=== PATIENT | female | born 1970 | race Hispanic/Latino ===

== ENCOUNTER 2017-08-07 10:00 | Emergency (ER) | payer MEDICAID ==
[2017-08-07 10:11] VITALS: BMI 25.2
--- NOTE | 2017-08-07 10:17 | ED PDOC ---
Arrival/HPI - General Time Seen by Provider: 08/07/17 10:15 Historian: Patient Past Medical History - Provider Review Nursing Documentation Reviewed: Yes - Infectious Disease Hx of Infectious Diseases: None - Musculoskeletal/Rheumatological Hx Back Pain: Yes Other/Comment: "bad knees" - Gastrointestinal Hx Diverticulitis: Yes - Genitourinary/Gynecological Other/Comment: "Weak Bladder" - Psychiatric Hx Substance Use: No - Surgical History Hx Cholecystectomy: Yes Other/Comment: Right knee sx - Anesthesia Hx Anesthesia: Yes Hx Anesthesia Reactions: No Hx Malignant Hyperthermia: No Family/Social History - Physician Review Nursing Documentation Reviewed: Yes Family/Social History: Unknown Family HX Smoking Status: Light Smoker < 10 Cigarettes Daily Hx Alcohol Use: No Hx Substance Use: No Allergies/Home Meds Allergies/Adverse Reactions: Allergies No Known Allergies Allergy (Verified 08/15/15 02:42) Home Medications: Home Meds Medication Instructions Recorded Confirmed Buprenorphine HCl/Naloxone HCl 1 film PO DAILY 08/15/15 08/15/15 [Suboxone 2 mg-0.5 mg Sl Film] Mirabegron [Myrbetriq] 1 tab PO DAILY 08/15/15 08/15/15 clonazePAM [Klonopin] 1 tab PO BID 08/15/15 08/15/15 Physical Exam - Physical Exam Narrative Physical Exam (Text): 08/07/17 Head: Atraumatic. Normocephalic. Eyes: PERRL. EOMI. Conjunctivae are not pale. ENT: Mucous membranes are moist and intact. Oropharynx is clear and symmetric. Neck: Supple. Full ROM. No JVD. No lymphadenopathy. Cardiovascular: Regular rate. Regular rhythm. No murmurs, rubs, or gallops. Distal pulses are 2+ and symmetric. Pulmonary/Chest: No evidence of respiratory distress. Clear to auscultation bilaterally. No wheezing, rales or rhonchi. Abdominal: Soft and non-distended. There is no tenderness. No rebound, guarding, or rigidity. No organomegaly. Good bowel sounds. Back: No CVA tenderness. Extremities: No edema. No cyanosis. No clubbing. Full range of motion in all extremities. No calf tenderness. Skin: Skin is warm and dry. No petechiae. No purpura. Neurological: Alert, awake, and oriented to person, place, time, and situation. Normal speech. Psychiatric: Good eye contact. Normal interaction, affect, and behavior. - Scribe Statement The provider has reviewed the documentation as recorded by the Glenisibe Catarina Mason Provider Scribe Attestation: All medical record entries made by the Scribe were at my direction and personally dictated by me. I have reviewed the chart and agree that the record accurately reflects my personal performance of the history, physical exam, medical decision making, and the department course for this patient. I have also personally directed, reviewed, and agree with the discharge instructions and disposition. Disposition/Present on Arrival - Present on Arrival History of DVT/PE: No History of Uncontrolled Diabetes: No Urinary Catheter: No History Surgical Site Infection Following: None - Disposition
--- NOTE | 2017-08-07 10:49 | ED PDOC ---
Arrival/HPI - General Chief Complaint: Psychiatric Evaluation Time Seen by Provider: 08/07/17 10:15 - History of Present Illness Narrative History of Present Illness (Text): 08/07/17 10:42 47 yo F with PMH of endometrial CA, skin CA, opioid abuse on suboxone, and IBS presents to emergency department accompanied by Dejon ALLEN and EMS after being found trespassing. Patient states that she's had multiple stressors in her life including poor job stability and tension between her kids. Patient denies any suicidal/homicidal ideation or visual/auditory hallucinations. Patient states that she had not slept for 3 days and was about to come to the hospital because she wanted to get some sleep. Before her partner could drive her to the hospital , she ran off and was found trespassing and being disruptive in a laundry room. Patient denies chest pain, shortness of breath nausea, vomiting, diarrhea, abdominal pain, fever, chills, headache, or dizziness. PMD: Fredy Zavala) Past Medical History - Infectious Disease Hx of Infectious Diseases: None - Cardiac Hx Cardiac Disorders: No - Pulmonary Hx Respiratory Disorders: No - Neurological Hx Neurological Disorder: No - HEENT Hx HEENT Disorder: No - Renal Hx Renal Disorder: No - Endocrine/Metabolic Hx Endocrine Disorders: No - Hematological/Oncological Hx Blood Disorders: No - Integumentary Hx Dermatological Disorder: Yes Other/Comment: Skin Cancer - Musculoskeletal/Rheumatological Hx Musculoskeletal Disorders: Yes Hx Back Pain: Yes Other/Comment: "bad knees" - Gastrointestinal Hx Gastrointestinal Disorders: Yes Hx Diverticulitis: Yes - Genitourinary/Gynecological Hx Genitourinary Disorders: Yes Other/Comment: "Weak Bladder". Endometrial Cancer - Psychiatric Hx Psychophysiologic Disorder: Yes Hx Anxiety: Yes Hx Depression: Yes Hx Panic Disorder: Yes (Panic Attack) Hx Substance Use: No - Surgical History Hx Cholecystectomy: Yes Other/Comment: Right knee sx - Anesthesia Hx Anesthesia: Yes Hx Anesthesia Reactions: No Hx Malignant Hyperthermia: No Family/Social History Family/Social History: Other (depression/anxiety) Smoking Status: Light Smoker < 10 Cigarettes Daily Hx Alcohol Use: No Hx Substance Use: No Allergies/Home Meds Allergies/Adverse Reactions: Allergies No Known Allergies Allergy (Verified 08/15/15 02:42) Home Medications: Home Meds Medication Instructions Recorded Confirmed Buprenorphine HCl/Naloxone HCl 1 film PO DAILY 08/15/15 08/07/17 [Suboxone 2 mg-0.5 mg Sl Film] ALPRAZolam [Xanax] 1 mg PO TID PRN 08/07/17 08/07/17 Linaclotide [Linzess] 290 mcg PO DAILY 08/07/17 08/07/17 Tolterodine Tartrate [Detrol LA] 4 mg PO DAILY 08/07/17 08/07/17 Review of Systems - Physician Review All systems were reviewed & negative as marked: Yes (12 point ROS reviewed and is negative other than what is stated in HPI.) Physical Exam Vital Signs Reviewed: Yes Temperature: Afebrile Blood Pressure: Normal Pulse: Regular Respiratory Rate: Normal Appearance: Positive for: Non-Toxic Pain Distress: None Mental Status: Positive for: Alert and Oriented X 3, Agitated - Systems Exam Head: Present: Atraumatic, Normocephalic Pupils: Present: PERRL Extroacular Muscles: Present: EOMI Conjunctiva: Present: Normal Mouth: Present: Moist Mucous Membranes Neck: Present: Normal Range of Motion Respiratory/Chest: Present: Clear to Auscultation. No: Wheezes, Rales, Rhonchi Cardiovascular: Present: Regular Rate and Rhythm, Normal S1, S2. No: Murmurs, Rub, Gallop Abdomen: No: Tenderness, Distention, Rebound, Guarding Upper Extremity: Present: Normal Inspection. No: Cyanosis, Edema Lower Extremity: Present: Normal Inspection. No: Edema Neurological: Present: GCS=15, CN II-XII Intact, Speech Normal Skin: Present: Warm, Dry, Normal Color. No: Rashes Psychiatric: Present: Alert, Oriented x 3, Agitated, Depressed Mood, Other ( Tangential thinking). No: Normal Insight, Normal Concentration, Suicidal Ideation, Homicidal Ideation, Hallucinations Vital Signs Temp Pulse Resp BP Pulse Ox 08/08/17 20:20 80 17 110/70 100 08/08/17 18:34 97.9 F 08/08/17 18:28 98 H 18 98/78 L 99 08/08/17 04:32 61 16 117/71 100 08/08/17 01:58 60 12 112/62 100 08/07/17 19:33 83 18 121/73 99 08/07/17 17:50 74 18 122/68 99 08/07/17 15:39 72 18 128/74 100 08/07/17 13:00 75 18 121/71 100 08/07/17 10:22 98.4 F 89 18 119/65 100 Medical Decision Making ED Course and Treatment: 08/07/17 18:04 Patient seen and evaluated with medical physics researcher. I examined patient and reviewed history with patient and consults. Patient admits to me "I admit I used some ecstasy". She denies headache or chest pain or shortness of breath. She is afebrile. She denies dysuria or frequency. With patient's permission, patient's significant other brought patient to Emergency department and history reviewed with him. Patient states to me that "my daughter called the police I'm not sure why". It is reported that she has been agitated and intermittently aggressive and pressure. Throughout Emergency department stay she is noted to be intermittently screaming at staff and entering offices despite being verbally updated on treatment plan which includes mental health evaluation and screening given history of agitation and aggressive behavior. I re-evaluated patient at 1745 and was able to speak to her, she became more calm and cooperative, RESTRAINTS AT THIS TIME WERE THUS NOT PLACED, although will continue one to one for reported aggressive behavior and agitation, potential harm to self in agitated state. Case to be endorsed to oncoming Emergency department physician for follow-up of screener recommendations and final disposition. (Frank Putnam) 08/07/17 10:56 47 yo F presents to emergency department for psychiatric evaluation. Plan: - CBC, CMP - EtOH level - CPK - ASA, tylenol level - UDS - UA - Urine - Chest X-ray - EKG - Reassess and disposition EKG reviewed and shoed rate of 81. NSR. Left axis deviation. Inferior infarct age undetermined 08/07/17 11:21 Potassium 3.3, repleted with PO KCl. CXR reviewed by radiologist showed no active disease. 08/07/17 14:24 Patient is medically cleared for psych admission and transfer. PES evaluated patient and is candidate for admission, however, patient currently refusing voluntary psychiatric admission. Information faxed to [facility] for evaluation for involuntary psychiatric admission. 08/07/17 17:41 Patient starting to become agitated and aggressive and was continuously pacing around the emergency department. Patient began entering restricted areas and was asked to remain in her room. However, patient was non-compliant. Thus, restraints and 1:1 ordered. (Fredy Carreno) - Lab Interpretations Lab Results: 08/07/17 10:45 08/07/17 10:45 Lab Results 08/07/17 11:05: Urine Opiates Screen Negative, Urine Methadone Screen Negative, Ur Barbiturates Screen Negative, Ur Phencyclidine Scrn Negative, Ur Amphetamines Screen Positive H, U Benzodiazepines Scrn Positive H, U Oth Cocaine Metabols Negative, U Cannabinoids Screen Negative 08/07/17 11:05: Urine Color Yellow, Urine Appearance Clear, Urine pH 6.0, Ur Specific [place] >= 1.030, Urine Protein Trace H, Urine Glucose (UA) Negative, Urine Ketones 40 H, Urine Blood Negative, Urine Nitrate Negative, Urine Bilirubin Small H, Urine Urobilinogen 0.2, Ur Leukocyte Esterase Negative, Urine RBC 0 - 2, Urine WBC 0 - 2, Ur Epithelial Cells 1 - 3, Urine Bacteria Mod , Urine HCG, Qual Negative 08/07/17 10:45: Alcohol, Quantitative < 10 08/07/17 10:45: Salicylates < 1 L, Acetaminophen < 10.0 L 08/07/17 10:45: Sodium 140, Potassium 3.3 L, Chloride 102, Carbon Dioxide 26, Anion Gap 16, BUN 10, Creatinine 0.6 L, Est GFR ( Amer) > 60, Est GFR ( Non-Af Amer) > 60, Random Glucose 113 H, Calcium 9.1, Magnesium 1.7, Total Bilirubin 1.2, AST 21, ALT 28, Alkaline Phosphatase 65, Total Creatine Kinase 86 , Total Protein 6.9, Albumin 4.3, Globulin 2.7, Albumin/Globulin Ratio 1.6 08/07/17 10:45: WBC 5.2, RBC 4.19, Hgb 12.4, Hct 35.3 L, MCV 84.2, MCH 29.6, MCHC 35.1, RDW 12.9, Plt Count 241, MPV 10.0, Gran % 61.0, Lymph % (Auto) 28.0, [place] % (Auto) 10.2 H, Eos % (Auto) 0.8 L, Baso % (Auto) 0.0, Gran # 3.19, Lymph # (Auto) 1.5, [place] # (Auto) 0.5, Eos # (Auto) 0.0, Baso # (Auto) 0.00 - RAD Interpretation Radiology Orders: 08/07/17 10:50 CHEST PORTABLE [RAD] Stat - Medication Orders Current Medication Orders: Discontinued Medications Diphenhydramine HCl (Benadryl) 50 mg IM Q6H PRN PRN Reason: agitation/aggression Haloperidol Lactate (Haldol) 5 mg IM STAT STA PRN Reason: Protocol Stop: 08/08/17 04:54 Last Admin: 08/08/17 05:40 Dose: 5 mg IM Administration Charges Document 08/08/17 05:40 CNR (Rec: 08/08/17 05:40 CNR [id number]) Injection Site MAR Injection Site Right Deltoid Charges for Administration # of IM Administrations 1 Haloperidol Lactate (Haldol) 5 mg IM Q6H PRN; Protocol PRN Reason: agitation/psychosis Lorazepam (Ativan) 2 mg IM ONCE ONE Stop: 08/08/17 04:53 Last Admin: 08/08/17 05:40 Dose: 2 mg IM Administration Charges Document 08/08/17 05:40 CNR (Rec: 08/08/17 05:40 CNR [id number]) Injection Site MAR Injection Site Right Deltoid Charges for Administration # of IM Administrations 1 Lorazepam (Ativan) 2 mg IM Q6 PRN; Protocol PRN Reason: Agitation Potassium Chloride (K-Dur 20 Meq Er Tab) 40 meq PO STAT STA Stop: 08/07/17 11:19 Last Admin: 08/07/17 13:26 Dose: 40 meq Ziprasidone (Geodon Inj) 20 mg IM ONCE STA Stop: 08/07/17 20:43 Last Admin: 08/07/17 20:48 Dose: 20 mg IM Administration Charges Document 08/07/17 20:48 CNR (Rec: 08/07/17 20:48 CNR [id number]) Injection Site MAR Injection Site Left Deltoid Charges for Administration # of IM Administrations 1 Disposition/Present on Arrival - Present on Arrival Any Indicators Present on Arrival: No History of DVT/PE: No History of Uncontrolled Diabetes: No Urinary Catheter: No History of Decub. Ulcer: No History Surgical Site Infection Following: None - Disposition Have Diagnosis and Disposition been Completed?: Yes Disposition Time: 19:00 - Disposition Diagnosis: Bipolar disorder Disposition: Transfer [facility] [place] Condition: STABLE Forms: [facility] (Polish)
[2017-08-07 11:05] LABS: EOS % 0.8 % (1.5-5.0); GRAN # 3.19 (1.4-6.5); HEMOGLOBIN 12.4 g/dL (12.0-16.0); LYMPH # 1.5 (1.2-3.4); MEAN CELL VOLUME 84.2 fl (80.0-105.0); MEAN CORPUSCULAR HEMOGLOBIN 29.6 pg (25.0-35.0); MEAN CORPUSCULAR HGB CONC 35.1 g/dl (31.0-37.0); MONO # 0.5 (0.1-0.6); MONO % 10.2 % (1.0-6.0); RBC 4.19 10^6/uL (3.5-6.1); RED CELL DISTRIBUTION WIDTH 12.9 % (11.5-14.5); WHITE BLOOD COUNT 5.2 10^3/ul (4.5-11.0)
[2017-08-07 11:10] LABS: ACETAMINOPHEN < 10.0 ug/ml (10.0-20.0); ALB/GLOB RATIO 1.6 (1.1-1.8); ALBUMIN 4.3 g/dL (3.0-4.8); ALT/SGPT 28 U/L (7-56); AST/SGOT 21 U/L (14-36); BLOOD UREA NITROGEN 10 mg/dL (7-21); CALCIUM 9.1 mg/dL (8.4-10.5); GFR AFRICAN-AMERICAN > 60; GFR NON-AFRICAN AMERICAN > 60; SALICYLATE < 1 mg/dL (2.0-20.0)
[2017-08-07] MEDS ORDERED: Potassium Chloride 20 mEq ER Tab PO STA (11:18)
[2017-08-07 11:28] LABS: URINE BILIRUBIN SMALL (NEGATIVE); URINE BLOOD NEGATIVE (NEGATIVE); URINE GLUCOSE (UA) NEGATIVE (NEGATIVE); URINE LEUKOCYTE ESTERASE NEGATIVE Leu/uL (NEGATIVE); URINE PROTEIN TRACE mg/dL (<30 mg/dL); URINE UROBILINOGEN 0.2 E.U./dL (<1 E.U./dL)
[2017-08-07 11:31] LABS: URINE APPEARANCE CLEAR (CLEAR); URINE COLOR YELLOW (YELLOW)
[2017-08-07 11:33] LABS: HCG,QUALITATIVE URINE NEGATIVE (NEGATIVE); URINE BACTERIA MOD (NEG); URINE RBC 0 - 2 /hpf (0-2); URINE WBC 0 - 2 /hpf (0-6)
[2017-08-07 11:38] LABS: PHENCYCLIDINE, UR NEGATIVE (NEGATIVE)
[2017-08-07 11:50] LABS: BARBITURATES, UR NEGATIVE (NEGATIVE); BENZODIAZEPINES, UR POSITIVE (NEGATIVE); OPIATES, UR NEGATIVE (NEGATIVE)
--- NOTE | 2017-08-07 11:52 | RAD ---
HISTORY: medical screening COMPARISON: 10/01/2015 FINDINGS: LUNGS: No active pulmonary disease. PLEURA: No significant pleural effusion identified, no pneumothorax apparent. CARDIOVASCULAR: Normal. OSSEOUS STRUCTURES: No significant abnormalities. VISUALIZED UPPER ABDOMEN: Normal. OTHER FINDINGS: None. IMPRESSION: No active disease.
--- NOTE | 2017-08-07 17:05 | CARD ---
APPROVED REPORT EKG Measurement Heart [id number] <Conclusion> Normal sinus rhythm Left axis deviation Inferior infarct, age undetermined Abnormal ECG
--- NOTE | 2017-08-07 19:28 | ED PDOC ---
Physical Exam Vital Signs Temp Pulse Resp BP Pulse Ox 08/08/17 04:32 61 16 117/71 100 08/08/17 01:58 60 12 112/62 100 08/07/17 19:33 83 18 121/73 99 08/07/17 17:50 74 18 122/68 99 08/07/17 15:39 72 18 128/74 100 08/07/17 13:00 75 18 121/71 100 08/07/17 10:22 98.4 F 89 18 119/65 100 Medical Decision Making ED Course and Treatment: 08/07/17 19:25 Patient endorsed to me by . Pending evaluation by [facility] [place] screeners. Patient apparently presented to emergency department post ecstasy use. Patient apparently was found trespassing and exhibiting disruptive behaviour. Patient was medically cleared and was seen by PES who deferred to [facility] [place] screeners. Patient is currently resting comfortably and under evaluation by [facility] [place] [facility] screeners. 08/07/17 20:43 Patient was accepted by [facility] [place] [facility] for transfer. Patient became belligerent and aggressive to ER staff, attempting to abscond. patient is screaming, yelling, and swinging at medical staff requiring her to be restrained. Sedation also ordered for the patient. 08/07/17 21:39 Pt. is awaiting bed availability at [facility] [place].Currently remains sedated. 08/07/18 05:00 Pt. became agitated,yelling and cursing ER staff.Unable to verbally reason with patient she was administered sedation. 08/08/17 07:00 Patient resting comfortably.Endorsed to oncoming attending /awaiting bed availability at [facility] [place] - Lab Interpretations Lab Results: 08/07/17 10:45 08/07/17 10:45 Lab Results 08/07/17 11:05: Urine Opiates Screen Negative, Urine Methadone Screen Negative, Ur Barbiturates Screen Negative, Ur Phencyclidine Scrn Negative, Ur Amphetamines Screen Positive H, U Benzodiazepines Scrn Positive H, U Oth Cocaine Metabols Negative, U Cannabinoids Screen Negative 08/07/17 11:05: Urine Color Yellow, Urine Appearance Clear, Urine pH 6.0, Ur Specific [place] >= 1.030, Urine Protein Trace H, Urine Glucose (UA) Negative, Urine Ketones 40 H, Urine Blood Negative, Urine Nitrate Negative, Urine Bilirubin Small H, Urine Urobilinogen 0.2, Ur Leukocyte Esterase Negative, Urine RBC 0 - 2, Urine WBC 0 - 2, Ur Epithelial Cells 1 - 3, Urine Bacteria Mod , Urine HCG, Qual Negative 08/07/17 10:45: Alcohol, Quantitative < 10 08/07/17 10:45: Salicylates < 1 L, Acetaminophen < 10.0 L 08/07/17 10:45: Sodium 140, Potassium 3.3 L, Chloride 102, Carbon Dioxide 26, Anion Gap 16, BUN 10, Creatinine 0.6 L, Est GFR ( Amer) > 60, Est GFR ( Non-Af Amer) > 60, Random Glucose 113 H, Calcium 9.1, Magnesium 1.7, Total Bilirubin 1.2, AST 21, ALT 28, Alkaline Phosphatase 65, Total Creatine Kinase 86 , Total Protein 6.9, Albumin 4.3, Globulin 2.7, Albumin/Globulin Ratio 1.6 08/07/17 10:45: WBC 5.2, RBC 4.19, Hgb 12.4, Hct 35.3 L, MCV 84.2, MCH 29.6, MCHC 35.1, RDW 12.9, Plt Count 241, MPV 10.0, Gran % 61.0, Lymph % (Auto) 28.0, [place] % (Auto) 10.2 H, Eos % (Auto) 0.8 L, Baso % (Auto) 0.0, Gran # 3.19, Lymph # (Auto) 1.5, [place] # (Auto) 0.5, Eos # (Auto) 0.0, Baso # (Auto) 0.00 - RAD Interpretation Radiology Orders: 08/07/17 10:50 CHEST PORTABLE [RAD] Stat - Medication Orders Current Medication Orders: Discontinued Medications Haloperidol Lactate (Haldol) 5 mg IM STAT STA PRN Reason: Protocol Stop: 08/08/17 04:54 Last Admin: 08/08/17 05:40 Dose: 5 mg IM Administration Charges Document 08/08/17 05:40 CNR (Rec: 08/08/17 05:40 CNR [id number]) Injection Site MAR Injection Site Right Deltoid Charges for Administration # of IM Administrations 1 Lorazepam (Ativan) 2 mg IM ONCE ONE Stop: 08/08/17 04:53 Last Admin: 08/08/17 05:40 Dose: 2 mg IM Administration Charges Document 08/08/17 05:40 CNR (Rec: 08/08/17 05:40 CNR [id number]) Injection Site MAR Injection Site Right Deltoid Charges for Administration # of IM Administrations 1 Potassium Chloride (K-Dur 20 Meq Er Tab) 40 meq PO STAT STA Stop: 08/07/17 11:19 Last Admin: 08/07/17 13:26 Dose: 40 meq Ziprasidone (Geodon Inj) 20 mg IM ONCE STA Stop: 08/07/17 20:43 Last Admin: 08/07/17 20:48 Dose: 20 mg IM Administration Charges Document 08/07/17 20:48 CNR (Rec: 08/07/17 20:48 CNR [id number]) Injection Site MAR Injection Site Left Deltoid Charges for Administration # of IM Administrations 1 - Scribe Statement The provider has reviewed the documentation as recorded by the Scribe Aditya Bobby Provider Scribe Attestation: All medical record entries made by the Scribe were at my direction and personally dictated by me. I have reviewed the chart and agree that the record accurately reflects my personal performance of the history, physical exam, medical decision making, and the department course for this patient. I have also personally directed, reviewed, and agree with the discharge instructions and disposition. Disposition/Present on Arrival - Present on Arrival Any Indicators Present on Arrival: No History of DVT/PE: No History of Uncontrolled Diabetes: No Urinary Catheter: No History of Decub. Ulcer: No History Surgical Site Infection Following: None - Disposition Have Diagnosis and Disposition been Completed?: No Diagnosis: Bipolar disorder Disposition Time: 07:00 Patient Problems: Current Active Problems Problem Status Onset Bipolar disorder Acute Condition: STABLE Forms: [employer] (Azeri)
--- NOTE | 2017-08-08 08:33 | ED PDOC ---
Physical Exam - Physical Exam Narrative Physical Exam (Text): 08/08/17 07:10 Vital Signs Reviewed: Yes Vital Signs Temp Pulse Resp BP Pulse Ox 08/08/17 04:32 61 16 117/71 100 08/08/17 01:58 60 12 112/62 100 08/07/17 19:33 83 18 121/73 99 08/07/17 17:50 74 18 122/68 99 08/07/17 15:39 72 18 128/74 100 08/07/17 13:00 75 18 121/71 100 08/07/17 10:22 98.4 F 89 18 119/65 100 Temperature: Afebrile Blood Pressure: Normal Pulse: Regular Respiratory Rate: Normal Appearance: Positive for: Non-Toxic, Comfortable Pain Distress: None Mental Status: Positive for: other (alert, conversive) Medical Decision Making ED Course and Treatment: 08/08/17 07:10 Plan: -- Awaiting bed availability at [facility] [place] -- Reassess and disposition Prior Visits: Notes and results from previous visits were reviewed. Progress Notes: 08/08/17 12:41 Upon reassessment, patient is resting comfortably and is cooperative. Patient denies any pain or discomfort. Patient has eaten and has been updated on treatment plan. She has also been reassessed by psychiatrist in the emergency department. 08/08/17 16:23 Patient resting. Will stand up and ambulate occasionally. Cooperative. No pain or discomfort reported. No respiratory distress noted. Awaiting transfer. Patient endorsed to Dr. Gonzalez at 1900 pending transfer. - Lab Interpretations Lab Results: 08/07/17 10:45 08/07/17 10:45 Lab Results 08/07/17 11:05: Urine Opiates Screen Negative, Urine Methadone Screen Negative, Ur Barbiturates Screen Negative, Ur Phencyclidine Scrn Negative, Ur Amphetamines Screen Positive H, U Benzodiazepines Scrn Positive H, U Oth Cocaine Metabols Negative, U Cannabinoids Screen Negative 08/07/17 11:05: Urine Color Yellow, Urine Appearance Clear, Urine pH 6.0, Ur Specific [place] >= 1.030, Urine Protein Trace H, Urine Glucose (UA) Negative, Urine Ketones 40 H, Urine Blood Negative, Urine Nitrate Negative, Urine Bilirubin Small H, Urine Urobilinogen 0.2, Ur Leukocyte Esterase Negative, Urine RBC 0 - 2, Urine WBC 0 - 2, Ur Epithelial Cells 1 - 3, Urine Bacteria Mod , Urine HCG, Qual Negative 08/07/17 10:45: Alcohol, Quantitative < 10 08/07/17 10:45: Salicylates < 1 L, Acetaminophen < 10.0 L 08/07/17 10:45: Sodium 140, Potassium 3.3 L, Chloride 102, Carbon Dioxide 26, Anion Gap 16, BUN 10, Creatinine 0.6 L, Est GFR ( Amer) > 60, Est GFR ( Non-Af Amer) > 60, Random Glucose 113 H, Calcium 9.1, Magnesium 1.7, Total Bilirubin 1.2, AST 21, ALT 28, Alkaline Phosphatase 65, Total Creatine Kinase 86 , Total Protein 6.9, Albumin 4.3, Globulin 2.7, Albumin/Globulin Ratio 1.6 08/07/17 10:45: WBC 5.2, RBC 4.19, Hgb 12.4, Hct 35.3 L, MCV 84.2, MCH 29.6, MCHC 35.1, RDW 12.9, Plt Count 241, MPV 10.0, Gran % 61.0, Lymph % (Auto) 28.0, [place] % (Auto) 10.2 H, Eos % (Auto) 0.8 L, Baso % (Auto) 0.0, Gran # 3.19, Lymph # (Auto) 1.5, [place] # (Auto) 0.5, Eos # (Auto) 0.0, Baso # (Auto) 0.00 - RAD Interpretation Radiology Orders: 08/07/17 10:50 CHEST PORTABLE [RAD] Stat - Medication Orders Current Medication Orders: Diphenhydramine HCl (Benadryl) 50 mg IM Q6H PRN PRN Reason: agitation/aggression Haloperidol Lactate (Haldol) 5 mg IM Q6H PRN; Protocol PRN Reason: agitation/psychosis Lorazepam (Ativan) 2 mg IM Q6 PRN; Protocol PRN Reason: Agitation Discontinued Medications Haloperidol Lactate (Haldol) 5 mg IM STAT STA PRN Reason: Protocol Stop: 08/08/17 04:54 Last Admin: 08/08/17 05:40 Dose: 5 mg IM Administration Charges Document 08/08/17 05:40 CNR (Rec: 08/08/17 05:40 CNR [id number]) Injection Site MAR Injection Site Right Deltoid Charges for Administration # of IM Administrations 1 Lorazepam (Ativan) 2 mg IM ONCE ONE Stop: 08/08/17 04:53 Last Admin: 08/08/17 05:40 Dose: 2 mg IM Administration Charges Document 08/08/17 05:40 CNR (Rec: 08/08/17 05:40 CNR [id number]) Injection Site MAR Injection Site Right Deltoid Charges for Administration # of IM Administrations 1 Potassium Chloride (K-Dur 20 Meq Er Tab) 40 meq PO STAT STA Stop: 08/07/17 11:19 Last Admin: 08/07/17 13:26 Dose: 40 meq Ziprasidone (Geodon Inj) 20 mg IM ONCE STA Stop: 08/07/17 20:43 Last Admin: 08/07/17 20:48 Dose: 20 mg IM Administration Charges Document 08/07/17 20:48 CNR (Rec: 08/07/17 20:48 CNR [id number]) Injection Site MAR Injection Site Left Deltoid Charges for Administration # of IM Administrations 1 - Scribe Statement The provider has reviewed the documentation as recorded by the Scribe Mane Lopez. All medical record entries made by the Scribe were at my direction and personally dictated by me. I have reviewed the chart and agree that the record accurately reflects my personal performance of the history, physical exam, medical decision making, and the department course for this patient. I have also personally directed, reviewed, and agree with the discharge instructions and disposition. Disposition/Present on Arrival - Present on Arrival Any Indicators Present on Arrival: No History of DVT/PE: No History of Uncontrolled Diabetes: No Urinary Catheter: No History of Decub. Ulcer: No History Surgical Site Infection Following: None - Disposition Have Diagnosis and Disposition been Completed?: Yes Diagnosis: Bipolar disorder Disposition: Transfer [facility] [place] Disposition Time: 19:00 Patient Plan: Observation Condition: STABLE Forms: [employer] (Burkinan)
[2017-08-08] MEDS ORDERED: DiphenhydrAMINE 50 mg/ml Inj IM PRN (10:26)
[2017-08-08 18:34] VITALS: TEMP 97.9
--- NOTE | 2017-08-08 20:13 | ED PDOC ---
Physical Exam Vital Signs Temp Pulse Resp BP Pulse Ox 08/08/17 18:34 97.9 F 08/08/17 18:28 98 H 18 98/78 L 99 08/08/17 04:32 61 16 117/71 100 08/08/17 01:58 60 12 112/62 100 08/07/17 19:33 83 18 121/73 99 08/07/17 17:50 74 18 122/68 99 08/07/17 15:39 72 18 128/74 100 08/07/17 13:00 75 18 121/71 100 08/07/17 10:22 98.4 F 89 18 119/65 100 Medical Decision Making ED Course and Treatment: 08/08/17 20:12 Patient endorsed back to me from . Patient has a history of bipolar disorder and is still awaiting bed availability at [facility] [place]. Patient remains stable and resting comfortably. - Lab Interpretations Lab Results: 08/07/17 10:45 08/07/17 10:45 Lab Results 08/07/17 11:05: Urine Opiates Screen Negative, Urine Methadone Screen Negative, Ur Barbiturates Screen Negative, Ur Phencyclidine Scrn Negative, Ur Amphetamines Screen Positive H, U Benzodiazepines Scrn Positive H, U Oth Cocaine Metabols Negative, U Cannabinoids Screen Negative 08/07/17 11:05: Urine Color Yellow, Urine Appearance Clear, Urine pH 6.0, Ur Specific [place] >= 1.030, Urine Protein Trace H, Urine Glucose (UA) Negative, Urine Ketones 40 H, Urine Blood Negative, Urine Nitrate Negative, Urine Bilirubin Small H, Urine Urobilinogen 0.2, Ur Leukocyte Esterase Negative, Urine RBC 0 - 2, Urine WBC 0 - 2, Ur Epithelial Cells 1 - 3, Urine Bacteria Mod , Urine HCG, Qual Negative 08/07/17 10:45: Alcohol, Quantitative < 10 08/07/17 10:45: Salicylates < 1 L, Acetaminophen < 10.0 L 08/07/17 10:45: Sodium 140, Potassium 3.3 L, Chloride 102, Carbon Dioxide 26, Anion Gap 16, BUN 10, Creatinine 0.6 L, Est GFR ( Amer) > 60, Est GFR ( Non-Af Amer) > 60, Random Glucose 113 H, Calcium 9.1, Magnesium 1.7, Total Bilirubin 1.2, AST 21, ALT 28, Alkaline Phosphatase 65, Total Creatine Kinase 86 , Total Protein 6.9, Albumin 4.3, Globulin 2.7, Albumin/Globulin Ratio 1.6 08/07/17 10:45: WBC 5.2, RBC 4.19, Hgb 12.4, Hct 35.3 L, MCV 84.2, MCH 29.6, MCHC 35.1, RDW 12.9, Plt Count 241, MPV 10.0, Gran % 61.0, Lymph % (Auto) 28.0, [place] % (Auto) 10.2 H, Eos % (Auto) 0.8 L, Baso % (Auto) 0.0, Gran # 3.19, Lymph # (Auto) 1.5, [place] # (Auto) 0.5, Eos # (Auto) 0.0, Baso # (Auto) 0.00 - RAD Interpretation Radiology Orders: 08/07/17 10:50 CHEST PORTABLE [RAD] Stat - Medication Orders Current Medication Orders: Diphenhydramine HCl (Benadryl) 50 mg IM Q6H PRN PRN Reason: agitation/aggression Haloperidol Lactate (Haldol) 5 mg IM Q6H PRN; Protocol PRN Reason: agitation/psychosis Lorazepam (Ativan) 2 mg IM Q6 PRN; Protocol PRN Reason: Agitation Discontinued Medications Haloperidol Lactate (Haldol) 5 mg IM STAT STA PRN Reason: Protocol Stop: 08/08/17 04:54 Last Admin: 08/08/17 05:40 Dose: 5 mg IM Administration Charges Document 08/08/17 05:40 CNR (Rec: 08/08/17 05:40 CNR [id number]) Injection Site MAR Injection Site Right Deltoid Charges for Administration # of IM Administrations 1 Lorazepam (Ativan) 2 mg IM ONCE ONE Stop: 08/08/17 04:53 Last Admin: 08/08/17 05:40 Dose: 2 mg IM Administration Charges Document 08/08/17 05:40 CNR (Rec: 08/08/17 05:40 CNR [id number]) Injection Site MAR Injection Site Right Deltoid Charges for Administration # of IM Administrations 1 Potassium Chloride (K-Dur 20 Meq Er Tab) 40 meq PO STAT STA Stop: 08/07/17 11:19 Last Admin: 08/07/17 13:26 Dose: 40 meq Ziprasidone (Geodon Inj) 20 mg IM ONCE STA Stop: 08/07/17 20:43 Last Admin: 08/07/17 20:48 Dose: 20 mg IM Administration Charges Document 08/07/17 20:48 CNR (Rec: 08/07/17 20:48 CNR [id number]) Injection Site MAR Injection Site Left Deltoid Charges for Administration # of IM Administrations 1 - Scribe Statement The provider has reviewed the documentation as recorded by the Scribe Aditya Bobby Provider Scribe Attestation: All medical record entries made by the Scribe were at my direction and personally dictated by me. I have reviewed the chart and agree that the record accurately reflects my personal performance of the history, physical exam, medical decision making, and the department course for this patient. I have also personally directed, reviewed, and agree with the discharge instructions and disposition. Disposition/Present on Arrival - Present on Arrival Any Indicators Present on Arrival: No History of DVT/PE: No History of Uncontrolled Diabetes: No Urinary Catheter: No History of Decub. Ulcer: No History Surgical Site Infection Following: None - Disposition Have Diagnosis and Disposition been Completed?: Yes Diagnosis: Bipolar disorder Disposition: Transfer [facility] [place] Disposition Time: 20:32 Patient Problems: Current Active Problems Problem Status Onset Bipolar disorder Acute Condition: STABLE Forms: [employer] (Serbian)
[2017-08-08 21:28] VITALS: BP 110/70; PULSE 80; RESP 17; O2SAT 100
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
== END 2017-08-08 20:20 | disposition short-term general hospital (02) ==
LOC: ED 10:00
DX: F31.9 Bipolar disorder, unspecified (principal); F17.210 Nicotine dependence, cigarettes, uncomplicated
CPT/HCPCS: 71045; 80053; 80320; 80324; 80329; 80345; 80346; 80349; 80353; 80358; 80361; 81001; 82550; 83735; 83992; 84703; 85025; 90791; 93005; 96372; 99285; J1630; J2060; J3486